=== PATIENT | male | born 1970 | race Caucasian/White ===

== ENCOUNTER 2024-02-04 09:49 | Outpatient (OUT) | payer BC, SELFPAY ==
[2024-02-04 10:16] LABS: Basophils Percent Auto 0.5 % (0.2-2.0); Eosinophils Absolute Auto 0.1 10^3/uL (0.0-0.7); Eosinophils Percent Auto 1.3 % (0.9-7.0); Hematocrit 42.3 % (42.0-54.0); Hemoglobin 14.9 g/dL (14.0-18.0); Immature Granulocytes Abs Auto 0.02 10^3/uL (0.00-0.03); Immature Granulocytes Pct Auto 0.3 % (0.0-0.5); Lymphocytes Absolute Auto 1.6 10^3/uL (1.2-3.8); Lymphocytes Percent Auto 26.5 % (20.5-60.0); Mean Corpuscular HGB Conc 35.2 g/dL (29.9-35.2); Mean Corpuscular Hemoglobin 32.5 pg (25.9-34.0); Mean Corpuscular Volume 92.4 fL (80.0-94.0); Mean Platelet Volume 10.4 fL (9.5-13.5); Monocytes Absolute Auto 0.6 10^3/uL (0.3-0.8); Monocytes Percent Auto 10.2 % (1.7-12.0); Neutrophils Absolute Auto 3.8 10^3/uL (1.4-6.5); Neutrophils Percent Auto 61.2 % (43.0-75.0); Platelet Count 176 10^3/uL (150-450); Red Blood Count 4.58 10^6/uL (4.70-6.10); Red Cell Distribution Width 11.9 % (11.0-15.0); White Blood Count 6.2 10^3/uL (4.0-11.0)
[2024-02-04 10:38] LABS: Alanine Aminotransferase 26 U/L (16-63); Albumin Level 3.7 g/dL (3.4-5.0); Alkaline Phosphatase 65 U/L (46-116); Amylase 90 U/L (25-115); Anion Gap 11.1; Aspartate Amino Transferase 19 U/L (15-37); BUN Creatinine Ratio 5.7; Bilirubin Direct 0.1 mg/dL (0.0-0.2); Bilirubin Total 0.3 mg/dL (0.2-1.0); Calcium 8.9 mg/dL (8.5-10.1); Carbon Dioxide 30.6 mmol/L (21.0-32.0); Chloride 102 mmol/L (98-107); Estimated GFR (African America >60 (>=60); Estimated GFR (Non-African Ame >60 (>=60); Globulin 3.8 g/dL; Glucose 91 mg/dL (74-106); Potassium 3.7 mmol/L (3.5-5.1); Sodium 140 mmol/L (136-145); Total Protein 7.5 g/dL (6.4-8.2)
== END 2024-02-04 09:50 | disposition home or self-care (01) ==
LOC: LAB 09:53
PROVIDERS: PCP Family Medicine; Visit Provider Family Medicine
DX: R10.13 Epigastric pain (principal)
CPT/HCPCS: 36415; 80048; 80076; 82150; 83690; 85025

== ENCOUNTER 2024-02-05 15:16 | Outpatient (OUT) | payer BC, SELFPAY ==
--- NOTE | 2024-02-05 15:18 | US_ITS ---
The [address] [address] Patient Name: JUDAH TURK MRN: [id number] date: 1970 Sex: M Assigned Patient Location: US Current Patient Location: Accession/Order Number: [id number] Exam Date: 02/05/2024 15:58 Report Date: 02/06/2024 09:40 At the request of: PRACHI MARKS Procedure: US right upper quadrant EXAM: US right upper quadrant HISTORY: . EPIGASTRIC PAIN R10.13 . COMPARISON: None. TECHNIQUE: Golden scale and color imaging was performed FINDINGS: Scanning of the pancreas demonstrates the pancreas to be unremarkable. Scanning of the liver demonstrates a liver to be normal in size. No masses are noted. Color-flow is noted in the portal and hepatic veins The gallbladder appears normal with no stones or sludge identified. Common bile duct measures 2 mm. Right kidney measures 8.9 x 4.8 x 4.7 cm. No solid renal cortical masses or hydronephrosis is noted. Color-flow is noted. No fluid is noted in the right upper quadrant. US/US right upper quadrant Impression: Normal ultrasound of the right upper quadrant. Electronically authenticated by: PK SEVERINO Date: 02/06/2024 09:40
== END 2024-02-05 15:17 | disposition home or self-care (01) ==
LOC: US 15:16
PROVIDERS: PCP Family Medicine; Visit Provider Family Medicine
DX: R10.13 Epigastric pain (principal)
CPT/HCPCS: 76705

== ENCOUNTER 2024-02-16 08:33 | Outpatient (OUT) | payer BC, SELFPAY ==
--- NOTE | 2024-02-16 | PCN_ITS ---
CARDIAC STRESS TEST Requesting Physician: Maco Hong M.D. Procedure Date: 02/16/2024 PERFORMING PROVIDER: Cat Leon M.D. INDICATION: Chest pain. STRESS TEST TYPE: Treadmill exercise stress test. Protocol: Franco Resting EKG: Normal sinus rhythm. Resting heart rate: 71 Peak heart rate: 142 Peak maximal heart rate percentage: 85% Resting blood pressure: 116/78 Peak blood pressure: 148/60 Exercise time: 6 minutes 0 seconds Stage reached: 2 Max METS: 7 Heart rate recovery: Normal. Chronotropic response index: 0.75, which was abnormal. Functional capacity: Fair. Blood pressure response: Normal. Monroe treadmill score: 2 ST changes: No ST changes meeting the criteria of ischemia. Symptoms: Patient had chest pain that resolved within 2 minutes of rest. Arrhythmias: PACs. CONCLUSION: 1. Resting EKG is normal sinus rhythm. 2. Patient exercised for 6 minutes. He reached stage 2 with max METS 7 on Franco protocol. 3. There were no definite EKG changes meeting the criteria for ischemia. 4. Patient did report chest pain that resolved within 2 minutes of rest. 5. He had an abnormal chronotropic response index of 0.75. 6. Patient?s Monroe treadmill score is +2, which portends medium risk of angiographically significant coronary artery disease. 7. Clinical correlation advised. [facility]
--- OUTSIDE RECORDS SUMMARY | 2024-02-16 08:37 | XMS_ITS | CCD ---
Author Organization [facility] Care Team Providers Care Concrete Engineer Name Role Phone Maco Marks Primary Care Provider [phone] Maco Marks Primary Care Provider David Perdomo Attending Provider David Perdomo Unavailable SELINA, DR MACO Morataya Primary Care Unavailable BELMOND, DR PK Cardoso Consulting Unavailable NADERER, DR MACO Morataya Admitting Unavailable NADERER, DR MACO Morataya Attending Unavailable NADERER, DR MACO Morataya Consulting Unavailable NADERER, DR MACO Morataya Primary Care Unavailable NADERER, DR MACO Morataya Admitting Unavailable NADERER, DR MACO Morataya Attending Unavailable NADERER, DR MACO Morataya Consulting Unavailable NADERER, DR MACO Morataya Primary Care Unavailable NADERER, DR MACO Morataya Admitting Unavailable NADERER, DR MACO Morataya Attending Unavailable NADERER, DR MACO Morataya Consulting Unavailable NADERER, DR MACO Morataya Primary Care Unavailable FAWWARosalba, MOON H Admitting Unavailable GEORGE, WINCHA Consulting Unavailable FAWWAD, MOON H Attending Unavailable FAWWAD, MOON H Consulting Unavailable Conor, David E Admitting Unavailable David Perdomo E Attending Unavailable Selina, Maco Primary Care Unavailable Selina FLORES, Maco Gonzalez Primary Care Provider SELINA, MACO GONZALEZ Referring Unavailabl e NADERER, MACO GONZALEZ Primary Care Unavailabl e NADEREMonty, MACO GONZALEZ Referring Unavailabl e NADERER, MACO GONZALEZ Primary Care Unavailabl e NADERER, MACO Attending Unavailable LYNNEREMACO Millan Attending Unavailable MACO MARKS Attending Unavailable Medications Current Medications Medication Drug Class(es) Dates Sig (Normalized) Sig (Original) acetaminophen 325 mg / oxyCODONE hydrochloride 5 mg oral tablet (2 sources) Opioid Agonist Start: 12-06-2020 take 1 tablet by mouth four times daily Oxycodone-Acetamino phen Active 1 TAB PO Four times daily December 06, 2020 3:19pm gabapentin 300 mg oral capsule (2 sources) Anti-epileptic Agent Start: 12-06-2020 take 300-600 mg by mouth twice daily Gabapentin Active 300 - 600 MG PO Twice daily December 06, 2020 3:19pm methocarbamol 750 mg oral tablet (3 sources) Muscle Relaxant Start: 12-06-2020 take 750 mg by mouth four times daily Methocarbamol Active 750 MG PO Four times daily December 06, 2020 3:19pm nabumetone 500 mg oral tablet (2 sources) Nonsteroidal Anti-inflammatory Drug take 1 tablet by mouth twice daily nabumetone (RELAFEN) 500 MG tablet Take 500 mg by mouth 2 times daily 0 Active 24 hr oxybutynin chloride 10 mg extended release oral tablet (2 sources) Cholinergic Muscarinic Antagonist Start: 03-15-2018 take 1 tablet by mouth once daily oxybutynin (DITROPAN XL) 10 MG extended release tablet Take 1 tablet by mouth daily 30 tablet 3 03/15/2018 Active pantoprazole 40 mg delayed release oral tablet (2 sources) Proton Pump Inhibitor take 1 tablet by mouth once daily pantoprazole (PROTONIX) 40 MG tablet Take 40 mg by mouth daily 0 Active tamsulosin hydrochloride 0.4 mg oral capsule (2 sources) alpha-Adrenergic Dwayne take 1 capsule by mouth once daily tamsulosin (FLOMAX) 0.4 MG capsule Take 0.4 mg by mouth daily 0 Active tiZANidine 4 mg oral tablet (3 sources) Central alpha-2 Adrenergic Agonist Start: 12-06-2020 take 4 mg by mouth three times daily Tizanidine Active 4 MG PO Three times daily December 06, 2020 3:19pm Problems Active Problems Problem Classification Problem Date Documented Da te Episodic/Chronic Hyperplasia of prostate (2 sources) Benign prostatic hypertrophy with outflow obstruction; Translations: [Benign prostatic hyperplasia with lower urinary tract symptoms] Onset: 03-15-2018 03-15-2018 Chronic Nonspecific chest pain (4 sources) Chest pain, unspecified; Translations: [CHEST PAIN UNSPECIFIED] Onset: 02-25-2022 Episodic Other acquired deformities (1 source) Equinus contracture of the ankle; Translations: [Contracture, left ankle] Chronic Other connective tissue disease (1 source) Pain in left foot; Translations: [Pain in left foot] Episodic Other connective tissue disease (3 sources) Pain in left foot; Translations: [Pain in left foot] Onset: 06-25-2022 Episodic Unclassified (1 source) Patient encounter status; Translations: [Encounter for imaging to screen for metal prior to magnetic resonance imaging (MRI)] Unclassified (3 sources) CONTACT W/AND (SUSP) EXPOS COVID-19; Translations: [CONTACT W/AND (SUSP) EXPOS COVID-19] Onset: 06-15-2021 Past or Other Problems Problem Classification Problem Date Documented Date Episodic/Chronic Genitourinary symptoms and ill-defined conditions (2 sources) Increased frequency of urination; Translations: [Frequency of micturition] Onset: 03-15-2018 03-15-2018 Episodic Other nervous system disorders (1 source) Paresthesia of hand ; Translations: [Paresthesia of skin] Episodic Other non-traumatic joint disorders (1 source) Shoulder pain; Translations: [Pain in right shoulder] Episodic Residual codes; unclassified (2 sources) History of arthroscopic procedure on shoulder; Translations: [Other specified postprocedural states] Episodic Spondylosis; intervertebral disc disorders; other back problems (4 sources) Cervical radiculopathy; Translations: [Radiculopathy, cervical region] Onset: 06-27-2021 Resolved: 06-27-2021 Episodic Unclassified (1 source) CONTACT W/AND (SUSP) EXPOS COVID-19; Translations: [CONTACT W/AND (SUSP) EXPOS COVID-19] Onset: 06-13-2021 Results Test Name Value Interpretation Reference Range Facility XR FOOT LEFT (MIN 3 VIEWS)on 06-25-2022 XR FOOT LEFT (MIN 3 VIEWS) EXAMINATION: THREE XRAY VIEWS OF THE LEFT FOOT 06/25/2022 10:46 am COMPARISON: None. HISTORY: ORDERING SYSTEM PROVIDED HISTORY: Left foot pain FINDINGS: No acute osseous abnormality. Alignment is anatomic. Joint spaces preserved. Small plantar calcaneal spur present. Soft tissues unremarkable. IMPRESSION: No acute findings. Interpreted by: Santana Mcconnell DO Signed by: Santana Mcconnell DO 06/25/22 Final result Normal [facility] No acute findings. [facility] EXAMINATION: THREE XRAY VIEWS OF THE LEFT FOOT 06/25/2022 10:46 am COMPARISON: None. HISTORY: ORDERING SYSTEM PROVIDED HISTORY: Left foot pain FINDINGS: No acute osseous abnormality. Alignment is anatomic. Joint spaces preserved. Small plantar calcaneal spur present. Soft tissues unremarkable. [facility] Santana Mcconnell DO - 06/25/2022 EXAMINATION: THREE XRAY VIEWS OF THE LEFT FOOT 06/25/2022 10:46 am COMPARISON: None. HISTORY: ORDERING SYSTEM PROVIDED HISTORY: Left foot pain FINDINGS: No acute osseous abnormality. Alignment is anatomic. Joint spaces preserved. Small plantar calcaneal spur present. Soft tissues unremarkable. IMPRESSION: No acute findings. [employer] Phone: Radiology Study observation (narrative) [facility] Phone: XR FOOT LEFT (MIN 3 VIEWS)Or dered By: Santana Mcconnell on 06-25-2022 [facility] [employer] Phone: NM STRESS/REST MULTIon 02-25 NM STRESS/REST MULTI Patient: JUDAH TURK Exam Date: 02/25/2022 : 1970 Gender:M Ordering : DR MACO MARKS . Admission #: [id number] Family : Order #: [id number] CLICK HERE TO VIEW EXAM RADIOLOGY REPORT PROCEDURE: RADIONUCLIDE IMAGING STRESS/REST MULTI COMPARISON: None. INDICATIONS: Chest pain TECHNIQUE: Exam Description: Stress/Rest one day protocol gated SPECT Rest Imagin.0 mCi Tc-99m Cardiolite IV on 02/25/2022 Stress Imaging 31.0 mCi Tc-99m Cardiolite IV on 02/25/2022 Exercise Protocol: Franco Heart Rate (bpm): Rest: 67 Max: 150 PMHR: 89 Blood Pressure: Rest: 128/82 Max: 174/72 Exercise Time: Minutes: 4 Seconds: 51 Stage Reached: Stage: 2 Mets 7.0 Symptoms: none Rest and peak stress ECG findings were normal and the exercise portion of the study was normal per attending physician Dr. Perez . For more details please see separate cardiac stress test report. FINDINGS: QUALITY OF STUDY: Excellent. PERFUSION DEFECT: None. LOCATION: N/A SIZE: N/A. SEVERITY: N/A. TYPE: N/A. WALL MOTION: Normal. LV SIZE: Normal. 67 mL. TID / TCD: None; 1.0 LVEF: Normal. Calculated EF 75%. SUMMARY: Myocardial perfusion imaging study is NORMAL. CONCLUSION: 1. Normal myocardial profusion scan with no reversible ischemia 2. Normal exercise test Dictated by: Pk Liang MD on 02/25/2022 at 14:08 Approved by: Pk Liang MD on 02/25/2022 at 14:09 Normal [facility] TROPONIN, HIGH SENSITIVITYon 02-03-2022 HSTROP 6.4 pg/mL Normal 4.0-76.1 [facility] Comment on above: Result Comment: CUT- OFF POINTS HAVE BEEN ESTABLISHED BASED ON THE FOURTH UNIVERSAL DEFINITIONS OF MYOCARDIAL INFARCTION. THE UPPER REFERENCE LIMIT (URL) OF TROPONIN, DEFINED THE 99TH PERCENTILE OF cTnI DISTRIBUTION IN A REFERENCE POPULATION, HAS BEEN CONFIRMED THE DECISION THRESHOLD FOR MA DIAGNOSIS. Performed By: #### H STROPN #### [facility] [address] [address] [address] Christina Bob XR CHEST 2 Von 02-03-2022 XR CHEST 2 V EXAM: CHEST 2 VIEWS HISTORY: Chest pain TECHNIQUE: PA and lateral views chest. COMPARISON: None. FINDINGS: The lungs are mildly hyperinflated. There is no focal lung consolidation, pleural effusion or pneumothorax. Pulmonary vasculature is within normal limits. The cardiomediastinal silhouette is normal. IMPRESSION: 1. No acute cardiopulmonary disease. Electronically authenticated by: NADINE GEORGE Date: 2022-02-03 15:08 Normal [facility] XR cerv spine AP/LAT/FLX/EXT on 06-27-2021 XR cerv spine AP/LAT/FLX/EXT [facility] [address] [place] [id number] XRay Report Signed Patient: Judah Turk MR#: [id number] : 1970 Acct:[id number] Age/Sex: 50 / M ADM Date: 06/27/21 Loc: XD Room: Type: [facility] Attending Dr: David Perdomo MD Ordering Provider: David Perdomo MD Date of Service: 06/27/21 XR/XR cerv spine AP/LAT/FLX/EXT: M54.12 Copies to: David Perdomo MD AP with lateral neutral, flexion extension views of thecervical spine HISTORY: Follow-up surgery. Tenderness of the neck posteriorly. COMPARISON: 02/07/21 Cervical lordosis is adequate. No acute cervical spine fracture identified. No listhesis identified. No hypermobility identified with flexion and extension views. C4-C5 anterior interbody fusion changes are stable. No hardware failure. Disc spaces are adequate. Facets are in adequate alignment. The bony neuroforamen are patent. The dens is intact. The craniocervical junction is unremarkable. No paraspinal soft tissue abnormality seen. XR/XR cerv spine AP/LAT/FLX/EXT IMPRESSION: Uncomplicated postsurgical changes. No hypermobility. Impression dictated by: Armani Corbin M.D.06/27/2021 12:50 PM Dictation Location: [place] [address] Transcribed By: [facility] 06/27/21 1250 Dictated By: Armani Corbin DO 06/27/21 1246 Signed By: 06/27/21 1250 [facility] Covid-19 PCR (CVDTB)on 05-18 SARS-CoV-2 (COVID-19) RNA CLIFFORD+probe Ql (Unsp spec) Not detected Normal NOT DETECTED [facility] Comment on above: Result Comment: This test is not yet approved or cleared by the [place] FDA. When there are no FDA-approved or cleared tests available, and other criteria are met, FDA can make tests available under an emergency access mechanism called an Emergency Use Authorization (EUA). The EUA for this test is supported by the [place] of Health and Human Service's (HHS's) declaration that circumstances exist to justify the emergency use of in vitro diagnostics for the detection and/or diagnosis of the virus that causes COVID-19. This EUA will remain in effect (meaning this test can be used) for the duration of the COVID-19 declaration justifying emergency of IVDs, unless it is terminated or revoked by FDA (after which the test may no longer be used). When diagnostic testing is negative, the possibility of a false negative should be considered in the context of a patient's recent exposures and the presence of clinical signs and symptoms consistent with SARS-CoV-2. Performed By: #### C VDTB #### [facility] [address] [place], [place] [address] Dr. Christina Bob Covid-19 PCR ([facility])on 04-17 SARS-CoV-2 (COVID-19) RNA CLIFFORD+probe Ql (Unsp spec) Not detected Normal NOT DETECTED [facility] Comment on above: Result Comment: This test is not yet approved or cleared by the [place] FDA. When there are no FDA-approved or cleared tests available, and other criteria are met, FDA can make tests available under an emergency access mechanism called an Emergency Use Authorization (EUA). The EUA for this test is supported by the [place] of Health and Human Service's (HHS's) declaration that circumstances exist to justify the emergency use of in vitro diagnostics for the detection and/or diagnosis of the virus that causes COVID-19. This EUA will remain in effect (meaning this test can be used) for the duration of the COVID-19 declaration justifying emergency of IVDs, unless it is terminated or revoked by FDA (after which the test may no longer be used). When diagnostic testing is negative, the possibility of a false negative should be considered in the context of a patient's recent exposures and the presence of clinical signs and symptoms consistent with SARS-CoV-2. Performed By: #### C VDTB #### [facility] [address] [place] [id number] Padmini Ibanez COVID-19 Positive/Negativeon 12-13-2020 SARS-CoV-2 (COVID-19) N gene CLIFFORD+probe Ql (Resp) Negative Negative [facility] Comment on above: Testing for SARS-CoV -2 by RT-PCRThis test was developed and its performance characteristics determined by [employer] ([place]) and validated at the [facility]. This test has not been FDA cleared or approved. This test has been authorized by FDA under an Emergency Use Authorization (EUA). This test has been validated in accordance with the FDA's Guidance Document (Policy for Diagnostics Testing in Laboratories Certified to Perform High Complexity Testing under CLIA prior to Emergency Use Authorization for Coronavirus Disease-2019 during the Public Health Emergency) issued on November 17, 2019. This test is only authorized for the duration of time the declaration that circumstances exist justifying the authorization of the emergency use of in vitro diagnostic tests for detection of SARS-CoV-2 virus and/or diagnosis of COVID-19 infection under section 564(b)(1) of the Act, 21 U.S.C. 360bbb-3(b)(1), unless the authorization is terminated or revoked sooner. Laboratory - Microbiology an d Antimicrobial susceptibilityon 12-13-2020 SARS-CoV-2 (COVID-19) RNA CLIFFORD+probe Ql (Unsp spec) N/A [facility] Basophils Auto (Bld) [#/Vol] on 12-06-2020 Basophils (Bld) [#/Vol] 0.0 10*3/uL 0.0-0.2 [facility] Basophils/100 WBC Auto (Bld) on 12-06-2020 Basophils/100 WBC (Bld) 0.5 % [facility] Blood hemoglobin measurement (mass/volume)on 12-06-2020 Hemoglobin (Bld) [Mass/Vol] 15.1 g/dL 13.0-17.0 [facility] Blood leukocytes automated c ount (number/volume)on 12-06-2020 WBC (Bld) [#/Vol] 4.8 10*3/uL 4.5-11.0 [facility] Creatinine and Glomerular fi ltration rate.predicted panel (S/P/Bld)on 12-06-2020 Creatinine [Mass/Vol] 1.23 mg/dL 0.64-1.27 [facility] Eosinophils Auto (Bld) [#/Vo l]on 12-06-2020 Eosinophils (Bld) [#/Vol] 0.1 10*3/uL 0.0-0.45 [facility] Eosinophils/100 WBC Auto (Bl d)on 12-06-2020 Eosinophils/100 WBC (Bld) 1.7 % [facility] Erythrocyte distribution wid th Auto (RBC) [Ratio]on 12-06-2020 Erythrocyte distribution width (RBC) [Ratio] 13.4 % 12.0-14.8 [facility] Estimated glomerular filtrat ion rate (GFR) non- Americanon 12-06-2020 GFR/1.73 sq M.predicted among non-blacks MDRD (S/P/Bld) [Vol rate/Area] > 60 mL/Min [facility] Hematocrit Auto (Bld) [Volum e fraction]on 12-06-2020 Hematocrit (Bld) [Volume fraction] 43.2 % 38.8-50.0 [facility] Laboratory - Hematology and Cell countson 12-06-2020 Nucleated RBC/100 WBC (Bld) [Ratio] 0.5 % 0-0.5 [facility] Lymphocytes Auto (Bld) [#/Vo l]on 12-06-2020 Lymphocytes (Bld) [#/Vol] 1.8 10*3/uL 1.00-4.8 [facility] Lymphocytes/100 WBC Auto (Bl d)on 12-06-2020 Lymphocytes/100 WBC (Bld) 38.1 % [facility] MCH Auto (RBC) [Entitic mass ]on 12-06-2020 MCH (RBC) [Entitic mass] 33.3 pg 27.5-35.2 [facility] MCHC Auto (RBC) [Mass/Vol]on 12-06-2020 MCHC (RBC) [Mass/Vol] 34.9 g/dL 32.5-35.6 [facility] MCV Auto (RBC) [Entitic vol] on 12-06-2020 MCV (RBC) [Entitic vol] 95.4 fL 83.5-101 [facility] Monocytes Auto (Bld) [#/Vol] on 12-06-2020 Monocytes (Bld) [#/Vol] 0.6 10*3/uL 0.0-0.8 [facility] Monocytes/100 WBC Auto (Bld) on 12-06-2020 Monocytes/100 WBC (Bld) 13.4 % [facility] Neutrophils Auto (Bld) [#/Vo l]on 12-06-2020 Neutrophils (Bld) [#/Vol] 2.2 10*3/uL 1.8-7.7 [facility] Neutrophils/100 WBC Auto (Bl d)on 12-06-2020 Neutrophils/100 WBC (Bld) 46.3 % [facility] No Panel Informationon 12-06 Estimated GFR () > 60 mL/Min [facility] Comment on above: GFR estimated refere nce range: According to KDOQI guidelines, <60 ml/min/1.73m2 is sufficient to diagnose a patient with chronic kidney disease. Pharmacy Creatinine Clearance (Chem N/A [facility] Platelet mean volume Auto (B ld) [Entitic vol]on 12-06-2020 Platelet mean volume (Bld) [Entitic vol] 8.9 fL 6.6-10.1 [facility] Platelets Auto (Bld) [#/Vol] on 12-06-2020 Platelets (Bld) [#/Vol] 162 10*3/uL 150-450 [facility] RBC Auto (Bld) [#/Vol]on RBC (Bld) [#/Vol] 4.53 10*6/uL 3.90-5.60 [facility] [place] Serum or plasma calcium salvador urement (mass/volume)on 12-06-2020 Calcium [Mass/Vol] 9.5 mg/dL 8.2-10.2 [facility] Serum or plasma chloride brody surement (moles/volume)on 12-06-2020 Chloride [Moles/Vol] 99 mmol/L 95-114 [facility] Serum or plasma glucose salvador urement (mass/volume)on 12-06-2020 Glucose [Mass/Vol] 87 mg/dL 70-100 [facility] Comment on above: ADA recommended refe rence rangeRandom Glucose Reference Range is dependent on time and content of last meal. Glucose of more than 200 mg/dL in a nonstressed, ambulatory subject supports the diagnosis of Diabetes Mellitus. Serum or plasma potassium me asurement (moles/volume)on 12-06-2020 Potassium [Moles/Vol] 3.7 mmol/L 3.5-5.1 [facility] Serum or plasma sodium measu rement (moles/volume)on 12-06-2020 Sodium [Moles/Vol] 137 mmol/L 136-146 [facility] Serum or plasma total carbon dioxide measurement (moles/volume)on 12-06-2020 CO2 [Moles/Vol] 29.3 mmol/L 22.0-30.0 [facility] Serum or plasma urea nitroge n measurement (mass/volume)on 12-06-2020 Urea nitrogen [Mass/Vol] 5 mg/dL 05-09 [facility] XR EYE FOREIGN BODYon 2020 No evidence of metallic foreign body within the orbits. [employer] Phone: EXAMINATION: SINGLE XRAY VIEW OF THE ORBITS 09/25/2020 COMPARISON: None. HISTORY: ORDERING SYSTEM PROVIDED HISTORY: Encounter for imaging to screen for metal prior to magnetic resonance imaging (MRI) TECHNOLOGIST PROVIDED HISTORY: Per Protocol FINDINGS: No evidence of radiopaque foreign body within the orbits. No other acute abnormalities noted. [employer] Phone: Yoandy, [facility] Incoming Radiant Results From [employer] - 09/25/2020 10:02 AM EST EXAMINATION: SINGLE XRAY VIEW OF THE ORBITS 09/25/2020 COMPARISON: None. HISTORY: ORDERING SYSTEM PROVIDED HISTORY: Encounter for imaging to screen for metal prior to magnetic resonance imaging (MRI) TECHNOLOGIST PROVIDED HISTORY: Per Protocol FINDINGS: No evidence of radiopaque foreign body within the orbits. No other acute abnormalities noted. IMPRESSION: No evidence of metallic foreign body within the orbits. [employer] Phone: Vital Signs Date Time Vital Sign Value Performing Clinician Facility 06-27-2021 10:40-0500 Body height 162.56 cm Daivd Perdomo Other [facility] Other 06-27-2021 10:40-0500 Body mass index (BMI) [Ratio] 24.03 kg/m2 David Perdomo Other [facility] Other 06-27-2021 10:40-0500 Body weight 63.5 kg David Perdomo Other [facility] Other 06-27-2021 10:40-0500 Diastolic blood pressure 76 mm[Hg] David Perdomo Other [facility] Other 06-27-2021 10:40-0500 Systolic blood pressure 126 mm[Hg] David Perdomo Other [facility] Other Encounters Encounter Date Encounter Type Care Provider Facility Start: 02-09-2024 End: 02-09-2024 ambulatory MACO MARKS Not Available Start: 02-02-2024 End: 02-02-2024 ambulatory MACO MARKS Not Available Start: 09-16-2023 End: 09-16-2023 ambulatory MACO MARKS Not Available Start: 06-25-2022 End: 06-28-2022 ambulatory MACO MARKS [facility] Start: 06-25-2022 End: 06-27-2022 Subsequent hospital visit by physician Alexandra Boone Dr Room 4 [facility] Comment on above: Left foot pain Start: 02-25-2022 End: 02-26-[address] MACO MARKS Facility:[facility] Start: 02-03-2022 End: 02-04-[address] MACO MARKS Facility:[facility] Start: 06-27-2021 Office outpatient vi sit 15 minutes David Perdomo [facility] operated by [facility] Start: 06-27-2021 End: 06-27-2021 ambulatory David Perdomo [facility] Other Start: 06-13-2021 End: 06-13-[address] MCAO MARKS Facility:[facility] Start: 04-29-2021 End: 04-29-[address] MACO MARKS Facility:[facility] Start: 12-13-2020 End: 12-13-2020 Patient encounter procedure Maco Marks Work Phone: -Pre-Surgical Testing Start: 12-06-2020 End: 12-06-2020 Patient encounter procedure Maco Marks Work Phone: -Pre-Surgical Testing Start: 10-22-2020 End: 10-22-2020 Patient encounter procedure Maco Marks Work Phone: -XRay [facility] [place] Start: 09-25-2020 End: 09-27-2020 Subsequent hospital visit by physician Alexandra Boone Dr Room 2 [facility] [place] [facility] Comment on above: Encounter for imagin g to screen for metal prior to magnetic resonance imaging (MRI) Procedures Date Procedure Procedure Detail Performing Clinician Start: 06-25-2022 Radex foot complete minimum 3 views Maco Marks MD Work Phone: Start: 10-22-2020 Radiography of cervi akin spine Maco Marks Work Phone: Start: 09-25-2020 Radiologic examinati on eye detect foreign body Maco Marks Work Phone: Plan of Treatment Date Care Activity Detail Author Start: 03-17-2022 Influenza vaccination Flu vaccine (# 1) [facility] [employer] Start: 10-22-2021 COVID-19 Vaccine (4 - Booster for Pfizer series) COVID-19 Vaccine (4 - Booster for Pfizer series) [facility] [employer] Start: 04-17-2020 Influenza vaccination Flu vaccine (# 1) [facility] Work Phone: Start: 12-01-2019 Screening for malign ant neoplasm of colon Colon cancer screen colonoscopy [facility] [employer] Work Phone: Start: 12-01-2019 Shingles Vaccine (1 of 2) Shingles Vaccine (1 of 2) [facility] [employer] Start: 2014 Screening for malign ant neoplasm of colon [facility] [employer] Start: 2009 Lipid panel [facility] [employer] Start: 1988 DTaP/Tdap/Td vaccine (1 - Tdap) DTaP/Tdap/Td vaccine (1 - Tdap) [facility] Start: 12-01-1987 Hepatitis C screening Hepatitis C sc reen [facility] [employer] Start: 1984 HIV screening HIV screen [facility] [employer] Start: 1981 Depression Screen Depression Screen [employer] Start: 1970 Hepatitis C screening Hep[facility] C [facility] Work Phone: Payers Date Payer Category Payer Unknown [id number] 2022 Unknown [id number] 2021 Self-pay [id number] 1970 Unknown [id number] 2.16.84 [id number] 1970 Unknown [id number] 2.16.84 [id number] 1970 Unknown [id number] 2.16.84 [id number] 1970 Unknown [id number] 2.16.84 [id number] 1970 Unknown [id number] 2.16.8 [id number] 1970 Unknown [id number] 2.16.8 [id number] 1970 Unknown [id number] 2.16.84 [id number] 1970 Unknown [id number] 2.16.84 [id number] 1970 Unknown [id number] 1960 Unknown [id number] Unknown [id number] [id number] Social History Date Type Detail Facility Start: 01-21-2018 End: 03-15-2018 Tobacco smoking status NHIS Former smoker [facility] Start: 01-21-2018 End: 03-15-2018 Tobacco use and exposure Never used [employer] Phone: Start: 03-15-2018 Alcohol intake Current drinke r of alcohol (finding) [employer] Phone: Start: 01-25-2018 Alcohol Comment rare Chanda Hernandez [employer] Work Phone: Start: 1970 Sex Assigned At Not on file M [place] Work Phone: Exposure to SARS-CoV-2 (event) Not sure [employer] Phone: Start: 1970 Sex Assigned At Male F [facility] Sex Assigned At Sex Assigned At Bir th [facility] Other History of tobacco use Current smoker [employer] Phone: Goals Date Patient Goal Desired Activity /State Evaluation note 06-27-2021 Note Date & Type Note Facility 06-27-2021 Evaluation note Encounter Date Diagnosis Assessment Notes Jun, Cervical disc disorder at C4-C5 level with radiculopathy (ICD-10 - M50.121) I have independently reviewed the new x-ray of the cervical spine and the report there appears to be a good fusion at C4-5. The patient has good clinical recovery. He has point tenderness it is not bad enough to warrant pain management at this time. I discussed anti-inflammator ies etc. I have given him encouragement. I think he has had a good operation good fusion and good recovery; he will see me on an as-needed basis. If he complains about continued neck pain we will gladly refer him to pain management, he will let us know Jun, Neck pain (ICD-10 - M54.2) [facility] Other Evaluation note Note Date & Type Note Facility Evaluation note No Assessments Information Avail able [facility] Evaluation note Note Date & Type Note Facility Evaluation note Diagnosis Left foot pain Pain in limb documented in this encounter [employer] Phone: History general Narrative - Reported Note Date & Type Note Facility History general Narrative - Reported Type Medical History Arthritis Medical History DENIES HX OF BLOODBORNE DISEASE Surgical History left knee surgery Surgical History LEFT KNEE SX 1978 Surgical History bilateral carpal tunnel release Surgical History CTR B/L 1992 Surgical History colonoscopy 03/2007 Surgical History ACDF-Doctor Perdomo Hospitalization History SEE ABOVE [facility] Other Assessments Diagnosis Encounter for imaging to screen for metal prior to magnetic resonance imaging (MRI) Advance Directives No Advanced Directives Records FoundDocuments on File Type Date 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 ACP-Advance Directive ACP-Power of 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 Advance Directive Response Recorded Date/ Time Advance Directives No October 19 11:13am Chief Complaint and Reason for Visit Chief Complaint M50.121 Radiculopathy Chief Complaint M50.121 Radiculopathy Radiculopathy Family History No Family History Records Found Relationship Condition Age at Onset Recorded Date/T miya father Leukemia Unknown Not Specified Malignant neoplasm Unknown Myocardial infarction Unknown sister Malignant neoplasm o f female genital organ Unknown brother Myocardial infarction Unknown Summary Purpose Additional Source Comments REASON FOR VISIT (unrecogniz ed section and content) 6 month po ACDF (unrecognized sect ion and content) No Status Records FoundNo Status Records FoundNo Status Records FoundNo Status Records Found INFORMATION SOURCE (unrecogn ized section and content) DATE CREATED AUTHOR 03/04/2022 [facility] DATE CREATED AUTHOR AUTHOR'S ORGANIZ ATION 06/22/2022 [facility] DATE CREATED AUTHOR AUTHOR'S ORGANIZ ATION 06/28/2022 [facility] DATE CREATED AUTHOR AUTHOR'S ORGANIZ ATION 02/10/2024 [facility] [employer] Care Teams (unrecognized sec tion and content) 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 This clinical summary was aggregated from multiple sources. Caution should be exercised in using it in the provision of clinical care. This summary normalizes information from multiple sources, and as a consequence, information in this document may materially change the coding, format and clinical context of patient data. In addition, data may be omitted in some cases. CLINICAL DECISIONS SHOULD BE BASED ON THE PRIMARY CLINICAL RECORDS. [employer] [facility] provides no warranty or guarantee of the accuracy or completeness of information in this document.
--- NOTE | 2024-02-16 15:59 | PC.NURSE ---
Nursing Note Cardiac Stress Test Reviewed: Medication, allergies and patient history reviewed. Stress Test: [x ] Patient tolerated stress test well. [ ] Patient unable to tolerate walking on treadmill. Switched to Lexiscan stress test. [ ] No chest pain noted per patient [ x] Chest pain that resolved prior to leaving stress lab. [ ] No dyspnea noted. [ x] Dyspnea that resolved prior to leaving stress lab. [ x] Patient left stress lab asymptomatic and hemodynamically stable. [ ] Patient taken to the Emergency Room due to non-resolving symptoms following stress test. [ x] Patient achieved target heart rate. [ ] Patient unable to achieve target heart rate. [ ] Aminophylline administered as reversal agent to Lexiscan (Regadenoson). [ ] Nitro administered. Nursing Comments: Pt had regular stress test and tolerated well. Pt had some chest discomfort that he states was not as bad as he has had in the past while at home. Pt stated the pain was gone within 2 minutes of rest and he felt back to normal prior to ending the test and pt leaving stress lab.
== END 2024-02-16 08:34 | disposition home or self-care (01) ==
LOC: CARD 08:33
PROVIDERS: PCP Family Medicine; Visit Provider Family Medicine
DX: R07.9 Chest pain, unspecified (principal)
CPT/HCPCS: 93017

== ENCOUNTER 2025-03-15 09:00 | Outpatient (OUT) | payer OTHER, SELFPAY ==
--- NOTE | 2025-03-15 09:12 | XR_ITS ---
The [address] [address] Patient Name: JUDAH TURK MRN: [id number] date: 1970 Sex: M Assigned Patient Location: LAB Current Patient Location: LAB Accession/Order Number: [id number] Exam Date: 03/15/2025 09:23 Report Date: 03/15/2025 09:24 At the request of: PRACHI MARKS MD Procedure: XR lumbar spine 2-3V LUMBAR SPINE - 2 views CLINICAL HISTORY: Lumbosacral spondylosis with radiculopathy COMPARISON: None FINDINGS: Vertebral body disc space heights appear maintained. Facet joints appear unremarkable. No acute bony process. XR/XR lumbar spine 2-3V IMPRESSION: NO ACUTE BONY PROCESS. Impression dictated by: Arpit Fleming Jr.OEyal 03/15/2025 9:24 AM Dictation Location: [place] [address] Electronically authenticated by: [id number] Y Date: 03/15/2025 09:24
== END 2025-03-15 09:01 | disposition home or self-care (01) ==
LOC: LAB 09:00
PROVIDERS: PCP Family Medicine; Visit Provider Family Medicine
DX: M47.27 Other spondylosis with radiculopathy, lumbosacral region (principal)
CPT/HCPCS: 72100